=== PATIENT | female | born 1970 | race Caucasian/White ===

== ENCOUNTER 2017-04-28 06:08 | Emergency (ER) | payer OTHER ==
[~2017-04-28] VITALS: Ht 152.4 cm; Wt 55.3 kg
[~2017-04-28 06:08] MED LIST: ACET325T14 PO; DAYQUIL PO; DIPH25CA61 PO; DULO60CA7 PO; IBUP400T PO; MULT-516 PO
[2017-04-28] MEDS ORDERED: DIME120C2 PO (06:36)
[2017-04-28 07:17] VITALS: BP 121/72
== END 2017-04-28 07:20 | disposition home or self-care (01) ==
LOC: ED 07:00
DX: G35 Multiple sclerosis (principal)
CPT/HCPCS: 99283

== ENCOUNTER → 2018-10-02 | Outpatient (CLI) | payer OTHER ==
[~2018-10-02] MED LIST changes: +DIME120C2 PO; +IBUP-1221 PO; -IBUP400T PO
== END | disposition home or self-care (01) ==
LOC: STAR 12:20
PROVIDERS: ATTEND Registered Nurse
DX: G35 Multiple sclerosis (principal)
CPT/HCPCS: 93005

== ENCOUNTER → 2018-10-14 | Outpatient (CLI) | payer OTHER ==
[~2018-10-14] MED LIST changes: +GADOBUTROL 7.5 MMOL/7.5 ML PFS ONE
== END | disposition home or self-care (01) ==
LOC: CFH 12:34
PROVIDERS: ATTEND Registered Nurse
DX: M51.24 Other intervertebral disc displacement, thoracic region (principal); M47.892 Other spondylosis, cervical region; M48.02 Spinal stenosis, cervical region; R90.82 White matter disease, unspecified; G35 Multiple sclerosis
CPT/HCPCS: 70553; 72156; 72157; A9585